=== PATIENT | female | born 1970 | race Two or more races ===

== ENCOUNTER 2023-03-08 10:39 | Emergency (ER) | payer MEDICAID ==
[~2023-03-08] VITALS: Ht 149.9 cm; Wt 66.2 kg
[2023-03-08 12:16] LABS: Urine Bacteria NONE SEEN /hpf (None Seen); Urine Blood Negative /uL (Negative); Urine Specific Gravity 1.009 (1.001-1.035); Urine WBC 31 /hpf (0 - 5)
[2023-03-08 13:16] VITALS: BP 112/83
[2023-03-08] MEDS ORDERED: CEPH-510 PO (13:38)
[2023-03-08] MEDS ORDERED: ACET1CAP14 PO (13:38)
[2023-03-08] MEDS ORDERED: cefTRIAXone SOD 1,000 MG VL IM ONE (13:45)
[2023-03-08] MEDS ORDERED: LIDOCAINE 1% HCL (LOCAL ANESTH.) INJ 20ML MDV ID ONE (13:45)
== END 2023-03-08 14:21 | disposition home or self-care (01) ==
LOC: ER 10:39
DX: N12 Tubulo-interstitial nephritis, not specified as acute or chronic (principal); Z88.2 Allergy status to sulfonamides
CPT/HCPCS: 81001; 87086; 96372; 99283; J0696

== ENCOUNTER 2023-08-15 13:35 | Emergency (ER) | payer MEDICAID ==
[~2023-08-15] VITALS: Ht 149.9 cm; Wt 65.7 kg
[~2023-08-15 13:35] MED LIST: ACET1CAP14 PO; CEPH-510 PO
[2023-08-15 13:56] VITALS: BP 114/75; PULSE 87; RESP 18; TEMP 98.7; O2SAT 95
[2023-08-15 14:34] LABS: Urine Bacteria FEW /hpf (None Seen); Urine Blood Negative /uL (Negative); Urine Clarity HAZY (Clear); Urine Color Colorless (Yellow); Urine Protein, UAD Negative (Negative); Urine Specific Gravity 1.018 (1.001-1.035); Urine Urobilinogen Normal (Negative); Urine WBC 6 /hpf (0 - 5); Urine pH 5.5 (5.0-8.0)
[2023-08-15] MEDS ORDERED: cefTRIAXone SOD 1,000 MG VL IM ONE (14:45)
[2023-08-15] MEDS ORDERED: IBUPROFEN 800 MG TAB PO ONE (14:45)
[2023-08-15] MEDS ORDERED: CIPR-173 PO (14:58)
== END 2023-08-15 14:58 | disposition home or self-care (01) ==
LOC: ER 13:35
DX: N39.0 Urinary tract infection, site not specified (principal); M54.50 Low back pain, unspecified; Z88.2 Allergy status to sulfonamides
CPT/HCPCS: 81001; 96372; 99283; J0696

== ENCOUNTER 2024-06-01 23:24 | Emergency (ER) | payer MEDICAID ==
[~2024-06-01] VITALS: Ht 149.9 cm; Wt 69.0 kg
[~2024-06-01 23:24] MED LIST changes: +CIPR-173 PO
[2024-06-01 23:56] VITALS: BP 102/76; PULSE 101; RESP 19; TEMP 98.4; O2SAT 97
[2024-06-02 00:27] LABS: COVID19 ANTIGEN SOFIA FIA POSITIVE (NEGATIVE); Rapid Influenza A Negative (Negative); Rapid Influenza B Negative (Negative)
[2024-06-02] MEDS ORDERED: NIRM1TAB8 PO (00:50)
== END 2024-06-02 02:39 | disposition home or self-care (01) ==
LOC: ER 23:24
DX: U07.1 COVID-19 (principal); E78.5 Hyperlipidemia, unspecified; Z88.2 Allergy status to sulfonamides
CPT/HCPCS: 36415; 87426; 87804

== ENCOUNTER 2025-06-13 13:10 | Emergency (ER) | payer MEDICAID ==
[~2025-06-13] VITALS: Ht 149.9 cm; Wt 62.0 kg
[~2025-06-13 13:10] MED LIST changes: +NIRM1TAB8 PO
--- NOTE | 2025-06-13 13:33 | ED.PDOC ---
History of Present Illness HPI Comments A 54 YEAR OLD MALE PRESENTS TO THE ED WITH COMPLAINT OF FEVER. PATIENT STATES SHE HAS BEEN EXPERIENCING A FEVER AND CHILLS OFF AND ON FOR THE PAST 1 WEEK. PATIENT REPORTS SHE HAS BEEN TAKING OTC MOTRIN FOR HER FEVER, BUT NOTES IT KEEPS RETURNING. NO FEVER AT THIS TIME. PATIENT DENIES SHORTNESS OF BREATH, CHEST PAIN, ABDOMINAL PAIN, NAUSEA, VOMITING, HEADACHE, OR OTHER COMPLAINTS. NO OTHER SYMPTOMS OR MODIFYING FACTORS AT THIS TIME. PATIENT IS ALERT, ORIENTED X 4, AND HAS STEADY GAIT. Chief Complaint: Fever Time Seen by MD: 13:19 Reviewed Notes: Nurses Notes, Medications, Allergies Information Source: Patient Mode of Arrival: Ambulatory Timing: Days Duration: Since onset, Days Prehospital treatment: None Severity: Mild Fever: Oral Context: Recent: None Symptoms: Fever, Chills Modifying Factors: Nothing Associated Signs and Symptoms: None Past Medical History PAST MEDICAL HISTORY: High Lipids, UTI'S Surgical History: Denies all surgeries HIGH DENSITY PRESS OPERATOR History: Denies all HIGH DENSITY PRESS OPERATOR Hx, No Pertinent HIGH DENSITY PRESS OPERATOR History Family History Family History: Reviewed,noncontributory to illness Social History Smoker: Non-Smoker Alcohol: Denies ETOH Use Drugs: Denies Drug Use Lives In: Home Constitutional: Chills, Fever EENTM: No Symptoms Reported Respiratory: No Symptoms Reported Cardiovascular: No Symptoms Reported Gastrointestinal: No Symptoms Reported Genitourinary: No Symptoms Reported Neurological: No Symptoms Reported Musculoskeletal: No Symptoms Reported Integumentary: No Symptoms Reported Allergic/Immunocompromised: others Hematologic/Lymphatic: No Symptoms Reported Endocrine: No Symptoms Reported Psychiatric: No symptoms Reported All Other Systems: Reviewed and Negative Physical Exam General Appearance: No Apparent Distress, Normal HEENT: Normal ENT Inspection, PERRL/EOMI, Pharynx Normal, TMs Normal Neck: Full Range of Motion, Non-Tender, Normal, Normal Inspection Respiratory: Chest Non-Tender, Lungs Clear, No Accessory Muscle Use, No Re spiratory Distress, Normal Breath Sounds Cardiovascular: No Edema, No JVD, No Murmur, No Gallop, Normal Peripheral Pulses, Regular Rate/Rhythm Breast Exam: Deferred Gastrointestinal: No Organomegaly, Non Tender, No Pulsatile Mass, Normal Bowel Sounds, Soft Genitalia: Deferred Pelvic: Deferred Rectal: Deferred Extremities: No calf tenderness, Normal capillary refill, Normal inspection, Normal range of motion, Non-tender, No pedal edema Musculoskeletal : Apperance: Normal Neurologic: Alert, director of music II-XII nml as Tested, No Motor Deficits, Normal Affect, Normal Mood, No Sensory Deficits Cerebellar Function: Normal Reflexes: Normal Skin: Dry, Normal Color, Warm Peripheral Pulses: 2+ carotid (R), 2+ carotid (L) Lymphatic: No Adenopathy Was a procedure done? Was a procedure done?: No Fever Differential Dx Differential Diagnosis: Pneumonia, Pneumonitis, UTI, Viral Syndrome, Pharyngitis Other Differential Diagnosis TONSILLITIS, OTITIS MEDIA X-Ray, Labs, Meds, VS Vital Signs Date Time Temp Pulse Resp B/P (MAP) Pulse Ox O2 Delivery O2 Flow Rate FiO2 06/13/25 13:13 101.3 99 18 117/85 96 101.3 Lab Test 06/13/25 13:39 06/13/25 13:32 Range/Units White Blood Count 6.7 4.4-10.8 10^3/uL Red Blood Count 4.34 4.0-5.20 10^6/uL Hemoglobin 13.8 12.2-16.2 g/dL Hematocrit 40.3 36.0-46.0 % Mean Corpuscular Volume 92.8 80.0-100.0 fL Mean Corpuscular Hemoglobin 31.8 28.0-32.0 pg Mean Corpuscular Hemoglobin Concent 34.2 32.0-36.0 g/dL Red Cell Distribution Width 13.2 11.8-14.3 % Platelet Count 245 140-450 10^3/uL Mean Platelet Volume 7.7 6.9-10.8 fL Neutrophils (%) (Auto) 74.8 37.0-80.0 % Lymphocytes (%) (Auto) 12.4 10.0-50.0 % Monocytes (%) (Auto) 12.4 H 0.0-12.0 % Eosinophils (%) (Auto) 0.2 0.0-7.0 % Basophils (%) (Auto) 0.2 0.0-2.0 % Neutrophils # (Auto) 5.0 1.6-8.6 10 ^3/uL Lymphocytes # (Auto) 0.8 0.4-5.4 10 ^3/uL Monocytes # (Auto) 0.8 0-1.3 10 ^3/uL Eosinophils # (Auto) 0 0-0.8 10 ^3/uL Basophils # (Auto) 0 0-0.2 10 ^3/uL Nucleated Red Blood Cells 0.0 % Sodium Level 137 136-145 mmol/L Potassium Level 4.0 3.5-5.1 mmol/L Chloride Level 105 98-107 mmol/L Carbon Dioxide Level 20 20-31 mmol/L Anion Gap 12 5-15 Blood Urea Nitrogen 9 9-23 mg/dL Creatinine 1.04 H 0.550-1.02 mg/dL Glomerular Filtration Rate Calc 64 >90 mL/min BUN/Creatinine Ratio 8.7 L 10.0-20.0 Serum Glucose 114 H 74-106 mg/dL Lactic Acid Level 1.6 0.4-2.0 mmol/L Calcium Level 9.5 8.7-10.4 mg/dL Urine Color Light-orange Yellow Urine Clarity Turbid H Clear Urine pH 5.5 5.0-9.0 Urine Specific Bradford 1.014 1.001-1.035 Urine Protein Trace H Negative Urine Ketones Negative Negative Urine Blood 2+ H Negative /uL Urine Nitrite 2+ H Negative Urine Bilirubin Negative Negative Urine Urobilinogen Normal Negative mg/dL Urine Leukocyte Esterase 3+ Negative /uL Urine RBC 9 0 - 4 /hpf Urine Microscopic WBC 59 H 0-5 /HPF Urine Squamous Epithelial Cells Few <5 /hpf Urine Bacteria Few H None Seen /hpf Urine Mucus Few None Seen Urine Glucose Normal Normal mg/dL CHEST RADIOGRAPH Indication: FEVER ON AND OFF Technique: Single frontal view of the chest was obtained COMPARISON: None FINDINGS: Lines and Tubes: None Lungs: Clear Pleura: No effusion. No pneumothorax. Cardiomediastinal contours: Unremarkable Bones: Unremarkable IMPRESSION: No acute disease. ATED BY: BABAK HAMILTON MD DICTATED DATE/TIME: 06/13/25 135 SIGNED BY: BABAK HAMILTON MD SIGNED DATE/TIME: 06/13/25 135 CC: X-Ray, Labs, Meds, VS Comment EXTERNAL MEDICAL RECORDS REVIEWED: [NONE] INDEPENDENT HISTORIANS: [NONE] SOCIAL DETERMINANTS OF HEALTH: [NONE] LABS ORDERED: UA CBC, BMP, LACTIC ACID W/REFLEX REVIEWED AND INTERPRETED RESULTS: NITRITE 2+, BLOOD 2+, LEUKO 3+ IMAGING ORDERED: XR CHEST TREATMENTS ORDERED: ROCEPHIN 1G IM PROCEDURES PERFORMED: NONE CRITICAL CARE TIME: NONE I HAVE DISCUSSED THE PATIENT WITH THE ATTENDING PHYSICIAN DR. ARRIAGA AND HE AGREES WITH THE PATIENT'S PLAN OF CARE AND DISPOSITION. BASED ON HISTORY OF PRESENT ILLNESS, AND PHYSICAL EXAM, PATIENT WILL BE DISCHARGED HOME. DISCUSSED PLAN FOR DISCHARGE HOME WITH RX [CIPRO 500MG AND MOTRIN 800MG]. MEDICATION WARNINGS GIVEN. SHARED DECISION MAKING: PATIENT INSTRUCTED TO FOLLOW UP WITH PRIMARY CARE PROVIDER IN 1-2 DAYS FOR RE-EVALUATION OF SYMPTOMS. PATIENT VERBALIZES UNDERSTA NDING TO RETURN TO ED FOR NEW OR WORSENING SYMPTOMS OR IF FOLLOW UP WITH PCP CANNOT BE OBTAINED. PATIENT FEELS COMFORTABLE GOING HOME AT THIS TIME. ALL QUESTIONS ADDRESSED AT TIME OF DISCHARGE. Images Reviewed?: Images reviewed and evaluated by me Time of 1ST Reevaluation: 15:00 Reevaluation 1ST: Improved Patient Education/Counseling: Diagnosis, Treatment, Need For Follow Up Family Education/Counseling: Diagnosis, Treatment, Need For Follow Up Medical Screening: No EMC Exist At This Time SEPSIS Sepsis Screen Date sepsis recognized/suspect: Jun 13, 2025 Time Sepsis recognized/suspect: 1313 Recent Procedure: No On Antibiotic Therapy: No Respiratory Rate >20: No Heart Rate >90: Yes Temp<36 C (96.8 F) or >38.3 C: Yes SBP <90 or MAP <65 mmHG: No New Acute Mental Status Change: No Is the patient on CPAP, BIPAP,: No Physician Orders Chest Xray 1 View (06/13/25 13:27) Vital Signs Date Time Temp Pulse Resp B/P (MAP) Pulse Ox O2 Delivery O2 Flow Rate FiO2 06/13/25 13:13 101.3 99 18 117/85 96 101.3 Laboratory Tests Test 06/13/25 13:39 Lactic Acid Level 1.6 mmol/L (0.4-2.0) White Blood Count 6.7 10^3/uL (4.4-10.8) Departure 1 Departure Time of Disposition: 15:00 Impression: Primary Impression: Acute UTI (urinary tract infection) Disposition: 01 HOME / SELF CARE / HOMELESS Condition: Stable Additional Instructions: FOLLOW-UP WITH PCP IN 1 TO 2 DAYS. TAKE MEDICATIONS PRESCRIBED. RETURN TO ED FOR ANY NEW OR WORSENING SYMPTOMS. e-Prescriptions Acetaminophen (Tylenol Extra Strength Fo) 500 Mg Tab 500 MG PO QID, #30 TAB Prov: ANASTACIA HANNAH 06/13/25 Ciprofloxacin Hcl (Cipro) 500 Mg Tab 1 TAB PO BID, #16 TAB Prov: ANASTACIA HANNAH 06/13/25 Discharged With: Self Critical Care Note Critical Care Time?: No Stability Stability form required: No I personally scribed for ANASTACIA HANNAH ([email or web address]) on 06/13/25 at 13:33. Electronically submitted by Darren Hartley ([email or web address]). I personally scribed for ANASTACIA HANNAH ([email or web address]) on 06/13/25 at 14:16. Electronically submitted by Darren Hartley ([email or web address]). ANASTACIA HANNAH Jun 13, 2025 13:33
[2025-06-13 13:51] LABS: Urine Protein, UAD TRACE (Negative)
--- NOTE | 2025-06-13 13:58 | DVH ---
CHEST RADIOGRAPH Indication: FEVER ON AND OFF Technique: Single frontal view of the chest was obtained COMPARISON: None FINDINGS: Lines and Tubes: None Lungs: Clear Pleura: No effusion. No pneumothorax. Cardiomediastinal contours: Unremarkable Bones: Unremarkable IMPRESSION: No acute disease.
[2025-06-13 14:02] LABS: Hematocrit 40.3 % (36.0-46.0); Hemoglobin 13.8 g/dL (12.2-16.2); Mean Corpuscular Hemoglobin 31.8 pg (28.0-32.0); Mean Corpuscular Volume 92.8 fL (80.0-100.0); Nucleated Red Blood Cells % 0.0 %
[2025-06-13 14:11] LABS: Chloride 105 mmol/L (98-107); Potassium 4.0 mmol/L (3.5-5.1); Sodium 137 mmol/L (136-145)
[2025-06-13 14:12] LABS: Anion Gap 12 (5-15); Calcium 9.5 mg/dL (8.7-10.4)
[2025-06-13 14:13] LABS: Carbon Dioxide 20 mmol/L (20-31)
[2025-06-13 14:17] LABS: BUN/Creatinine Ratio 8.7 (10.0-20.0); Blood Urea Nitrogen 9 mg/dL (9-23); Glucose 114 mg/dL (74-106)
[2025-06-13] MEDS ORDERED: ACET-1304 PO (14:41)
[2025-06-13 14:43] VITALS: BP 115/63; PULSE 87; RESP 17; TEMP 99.4; O2SAT 97
[2025-06-13] MEDS: cefTRIAXone SOD 1,000 MG VL IM ONE (14:48)
== END 2025-06-13 14:59 | disposition home or self-care (01) ==
LOC: ER 13:10
DX: N39.0 Urinary tract infection, site not specified (principal); E78.5 Hyperlipidemia, unspecified; Z87.440 Personal history of urinary (tract) infections
CPT/HCPCS: 36415; 71045; 80048; 81001; 83605; 85025; 96372; 99284; J0696